=== PATIENT | female | born 1950 | race Caucasian/White ===

== ENCOUNTER → 2017-04-27 | Outpatient (CLI) | payer OTHER | LOC: FIMAGING 13:46 | PROVIDERS: ATTEND Obstetrics & Gynecology | DX: Z12.31 Encounter for screening mammogram for malignant neoplasm of breast (principal); R22.33 Localized swelling, mass and lump, upper limb, bilateral | CPT/HCPCS: G0202 ==

== ENCOUNTER → 2018-04-26 | Outpatient (CLI) | payer OTHER | LOC: FIMAGING 09:55 | PROVIDERS: ATTEND Internal Medicine | DX: Z12.31 Encounter for screening mammogram for malignant neoplasm of breast (principal) ==

== ENCOUNTER 2018-08-21 17:02 | Emergency (ER) | payer OTHER ==
--- NOTE | 2018-08-21 17:22 | EDPHY ---
H & P Stated Complaint: Left chest tightness since this afternoon. Time Seen by Provider: 08/21/18 17:07 HPI/ROS: CHIEF COMPLAINT: Chest vibration HISTORY OF PRESENT ILLNESS: The patient is a 67-year-old female who comes to the emergency department complaining of chest discomfort for the last 5 hr. She states that it feels like her cell phone is vibrating against her chest. She was sitting at her desk when the symptoms began. It is not worsened by exertion or position. No shortness of breath. No lightheadedness. No diaphoresis. No nausea vomiting. She took some Tums which did not help her symptoms. She then took 2 aspirin and came to the ER. She has no history of cardiac disease or pulmonary disease. No recent infections. She states that she did travel to [facility] 2 weeks ago and had lower extremity edema left greater than right at the time that has since improved. No significant pain. She does not smoke. No recent fever or upper respiratory symptoms. Severity: Moderate Modifying factors: None REVIEW OF SYSTEMS: Constitutional: denies: chills, fever, recent illness, recent injury EENTM: denies: blurred vision, double vision, nose congestion Respiratory: denies: cough, shortness of breath Cardiac: See HPI Gastrointestinal/Abdominal: denies: abdominal pain, diarrhea, nausea, vomiting, blood streaked stools Genitourinary: denies: dysuria, frequency, hematuria, pain Musculoskeletal: denies: joint pain, muscle pain Skin: denies: lesions, rash, jaundice, bruising Neurological: denies: headache, numbness, paresthesia, tingling, dizziness, weakness Hematologic/Lymphatic: denies: blood clots, easy bleeding, easy bruising Immunologic/allergic: denies: HIV/AIDS, transplant 10 systems reviewed and negative except as noted EXAM: GENERAL: Well-appearing, well-nourished and in no acute distress. HEAD: Atraumatic, normocephalic. EYES: Pupils equal round and reactive to light, extraocular movements intact, sclera anicteric, conjunctiva are normal. ENT: TMs normal, nares patent, oropharynx clear without exudates. Moist mucous membranes. NECK: Normal range of motion, supple without lymphadenopathy or JVD. LUNGS: Breath sounds clear to auscultation bilaterally and equal. No wheezes rales or rhonchi. HEART: Regular rate and rhythm without murmurs, rubs or gallops. ABDOMEN: Soft, nontender, normoactive bowel sounds. No guarding, no rebound. No masses appreciated. BACK: No CVA tenderness, no spinal tenderness, step-offs or deformities EXTREMITIES: Normal range of motion, no pitting or edema. No clubbing or cyanosis. NEUROLOGICAL: Cranial nerves II through XII grossly intact. Normal speech, normal gait. 5/5 strength, normal movement in all extremities, normal sensation , normal reflexes PSYCH: Normal mood, normal affect. SKIN: Warm, dry, normal turgor, no visible rashes or lesions. Source: Patient Exam Limitations: No limitations - Personal History Current Tetanus Diphtheria and Acellular Pertussis (TDAP): Unsure - Medical/Surgical History Hx Asthma: No Hx Chronic Respiratory Disease: No Hx Diabetes: No Hx Cardiac Disease: No Hx Renal Disease: No Hx Cirrhosis: No Hx Alcoholism: No Hx HIV/AIDS: No Hx Splenectomy or Spleen Trauma: No Other PMH: DEnies - Family History Significant Family History: No pertinent family hx - Social History Smoking Status: Never smoked Alcohol Use: Sober Drug Use: None Constitutional: Initial Vital Signs Temperature (C) 36.6 C 08/21/18 17:03 Heart Rate 79 08/21/18 17:03 Respiratory Rate 16 08/21/18 17:03 Blood Pressure 145/95 H 08/21/18 17:03 O2 Sat (%) 96 08/21/18 17:03 O2 Delivery Mode Room Air Allergies/Adverse Reactions: No Known Allergies Allergy (Verified 09/20/12 07:55) Home Medications: Medication Instructions Recorded Lipitor Dose Unk 09/20/12 Medical Decision Making - Diagnostics EKG Interpretation: An EKG obtained and was read and documented in trace view. Please see trace view for full reading and report. Sinus rhythm, T-wave inversions anteriorly similar to previous Imaging Results: Imaging Impressions Chest X-Ray 08/21/18 17:53 Impression: Stable. Nothing acute identified. Imaging: Discussed imaging studies w/ banquet server on call Radiologist ED Course/Re-evaluation: 715 lab work EKG and chest x-ray are reassuring. Patient is currently asymptomatic. Engaged in shared decision making and agreed to perform repeat troponin. is going to get her food. 8:15 p.m. the patient remains asymptomatic. Her 2nd troponin is negative. I will have her follow up with Cardiology for outpatient stress testing. She understands and agrees with this plan. Her does as well. Differential Diagnosis: Partial list of the Differential diagnosis considered include but were not limited to; acute coronary disease, angina, anxiety, GERD, pleurisy and although unlikely based on the history and physical exam, I also considered PE, pneumonia, pneumothorax. I discussed these differential diagnoses and the plan with the patient as well as the usual and expected course. The patient understands that the diagnosis is provisional and that in medicine we are not always correct and that further workup is often warranted. Usual and customary warnings were given. All of the patient's questions were answered. The patient was instructed to return to the emergency department should the symptoms at all worsen or return, otherwise to followup with the physician as we discussed. - Data Points Laboratory Results: Laboratory Results 08/21/18 17:11 08/21/18 17:11 08/21/18 08/21/18 08/21/18 19:53 17:20 17:11 WBC RBC Hgb Hct MCV MCH MCHC RDW Plt Count MPV Neut % (Auto) Lymph % (Auto) [place] % (Auto) Eos % (Auto) Baso % (Auto) Nucleat RBC Rel Count Absolute Neuts (auto) Absolute Lymphs (auto) Absolute Monos (auto) Absolute Eos (auto) Absolute Basos (auto) Absolute Nucleated RBC Immature Gran % Immature Gran # PT INR APTT D-Dimer Sodium 137 mEq/L mEq/L (135-145) Potassium 4.1 mEq/L mEq/L (3.5-5.2) Chloride 103 mEq/L mEq/L (97-110) Carbon Dioxide 26 mEq/l mEq/l (22-31) Anion Gap 8 mEq/L mEq/L (6-14) BUN 16 mg/dL mg/dL (7-23) Creatinine 0.7 mg/dL mg/dL (0.6-1.0) Estimated GFR > 60 Glucose 108 mg/dL H mg/dL (70-100) Calcium 11.2 mg/dL H mg/dL (8.5-10.4) Phosphorus 3.6 mg/dL mg/dL (2.5-4.5) Total Bilirubin 0.4 mg/dL mg/dL (0.1-1.4) Conjugated Bilirubin 0.3 mg/dL mg/dL (0.0-0.5) Unconjugated Bilirubin 0.1 mg/dL mg/dL (0.0-1.1) AST 18 IU/L IU/L (14-46) ALT 35 IU/L IU/L (9-52) Alkaline Phosphatase 87 IU/L IU/L (38-126) POC Troponin I 0.00 ng/mL ng/mL 0.00 ng/mL ng/mL (0.00-0.08) (0.00-0.08) Total Protein 7.4 g/dL g/dL (6.3-8.2) Albumin 4.5 g/dL g/dL (3.5-5.0) Lipase 228 IU/L IU/L (23-300) 08/21/18 08/21/18 17:11 17:11 WBC 7.68 10^3/uL 10^3/uL (3.80-9.50) RBC 4.72 10^6/uL 10^6/uL (4.18-5.33) Hgb 14.5 g/dL g/dL (12.6-16.3) Hct 42.4 % % (38.0-47.0) MCV 89.8 fL fL (81.5-99.8) MCH 30.7 pg pg (27.9-34.1) MCHC 34.2 g/dL g/dL (32.4-36.7) RDW 12.6 % % (11.5-15.2) Plt Count 296 10^3/uL 10^3/uL (150-400) MPV 10.5 fL fL (8.7-11.7) Neut % (Auto) 58.2 % % (39.3-74.2) Lymph % (Auto) 31.8 % % (15.0-45.0) [place] % (Auto) 6.5 % % (4.5-13.0) Eos % (Auto) 3.0 % % (0.6-7.6) Baso % (Auto) 0.5 % % (0.3-1.7) Nucleat RBC Rel Count 0.0 % % (0.0-0.2) Absolute Neuts (auto) 4.47 10^3/uL 10^3/uL (1.70-6.50) Absolute Lymphs (auto) 2.44 10^3/uL 10^3/uL (1.00-3.00) Absolute Monos (auto) 0.50 10^3/uL 10^3/uL (0.30-0.80) Absolute Eos (auto) 0.23 10^3/uL 10^3/uL (0.03-0.40) Absolute Basos (auto) 0.04 10^3/uL 10^3/uL (0.02-0.10) Absolute Nucleated RBC 0.00 10^3/uL 10^3/uL (0-0.01) Immature Gran % 0.0 % % (0.0-1.1) Immature Gran # 0.00 10^3/uL 10^3/uL (0.00-0.10) PT 12.0 SEC SEC (12.0-15.0) INR 0.92 (0.83-1.16) APTT 26.9 SEC SEC (23.0-38.0) D-Dimer 0.27 ug/mLFEU ug/mLFEU (0.00-0.50) Sodium Potassium Chloride Carbon Dioxide Anion Gap BUN Creatinine Estimated GFR Glucose Calcium Phosphorus Total Bilirubin Conjugated Bilirubin Unconjugated Bilirubin AST ALT Alkaline Phosphatase POC Troponin I Total Protein Albumin Lipase Point of Care Test Results: Chemistry 08/21/18 08/21/18 19:53 17:20 POC Troponin I 0.00 ng/mL ng/mL 0.00 ng/mL ng/mL (0.00-0.08) (0.00-0.08) Departure - Departure Disposition: Home, Routine, Self-Care Clinical Impression: Chest pain Qualifiers: Chest pain type: unspecified Qualified Code(s): R07.9 - Chest pain, unspecified Condition: Fair Instructions: Chest Pain (ED) Referrals: Radha Roy MD [Primary Care Provider] - As per Instructions Christina Mckeon MD [Medical Doctor] - As per Instructions
--- NOTE | 2018-08-21 17:22 | CPEKG ---
Test Reason : OPEN Blood Pressure : / mmHG Vent. Rate : 081 BPM Atrial Rate : 081 BPM P-R Int : 167 ms QRS Dur : 088 ms QT Int : 392 ms P-R-T Axes : 051 045 022 degrees QTc Int : 455 ms Sinus rhythm Low voltage, precordial leads Confirmed by Paddy Gary ([id number]) on 08/21/2018 5:22:33 PM Referred By: PADDY GARY Confirmed By:Paddy Gary
[2018-08-21 17:31] LABS: PLATELET COUNT 296 10^3/uL (150-400)
[2018-08-21 17:39] LABS: INR 0.92 (0.83-1.16)
[2018-08-21 20:48] VITALS: BP 122/85
== END 2018-08-21 20:47 | disposition home or self-care (01) ==
DX: R07.9 Chest pain, unspecified (principal)
CPT/HCPCS: 84484-ER

== ENCOUNTER → 2018-09-04 | Outpatient (CLI) | payer OTHER | LOC: FIMAGING 10:18 | PROVIDERS: ATTEND Orthopaedic Surgery Sports Medicine | DX: Z13.0 Encounter for screening for diseases of the blood and blood-forming organs and certain disorders involving the immune mechanism (principal) ==

== ENCOUNTER → 2018-09-19 | Day surgery (SDC) | payer OTHER ==
[~2018-09-19] MED LIST: ASPIRIN EC 325 MG TAB PO ONE; ATORVASTATIN CALCIUM 20 MG TAB PO SCH; ATROPINE SULFATE 1 MG/10 ML SYR IVP PRN; DIAZEPAM 5 MG TAB PO ONE; FAMOTIDINE 20 MG TAB PO ONE; HEPARIN 10,000 UNIT/10 ML MDV (1,000 UNIT/ML) ONE; HYDROCODONE/APAP 5/325 TAB PO PRN; IOPAMIDOL (ISOVUE-370) 150 ML BTL IV ONE; LIDOCAINE 1% 300 MG/30 ML SDV ONE; MIDAZOLAM 2 MG/2 ML VIAL ONE; NITROGLYCERIN 0.4 MG BTL SL PRN; NS 1,000 ML IV ONE; ONDANSETRON 4 MG/2 ML VIAL IVP PRN; OXYCODONE/APAP 5/325 TAB PO PRN; VERAPAMIL 5 MG/2 ML VIAL ONE; diphenhydrAMINE 25 MG CAP PO ONE; fentaNYL 100 MCG/2 ML INJ ONE
[2018-09-19 10:03] LABS: PLATELET COUNT 244 10^3/uL (150-400)
[2018-09-19 10:17] LABS: INR 0.93 (0.83-1.16); PROTIME(PATIENT) 12.1 SEC (12.0-15.0)
--- NOTE | 2018-09-19 12:48 | PDHPUP ---
History & Physical Update H&P update statement: This history and physical update is based on an assessment of the patient which was completed after admission or registration (within 24 hours), but prior to the surgery/procedure. H&P update: H&P reviewed & patient examined, no change in patient's condition since H&P completed
--- NOTE | 2018-09-19 12:48 | PDPROPOC ---
Sedation Plan of Care Sedation Plan of Care: vital signs stable, mental status noted, patient educated of risks, benefits, alternatives, patient can tolerate sedation ASA Classification: ASA 2 Planned drugs: fentanyl, midazolam Mallampati Score: Class 3 Mallampati Reference Image: Patient passed 3-3-2 rule?: Yes
--- NOTE | 2018-09-19 13:03 | CPEKG ---
Test Reason : OPEN Blood Pressure : / mmHG Vent. Rate : 079 BPM Atrial Rate : 079 BPM P-R Int : 157 ms QRS Dur : 086 ms QT Int : 387 ms P-R-T Axes : 060 052 016 degrees QTc Int : 444 ms Sinus rhythm Minimal ST depression, inferior leads Confirmed by Devang Mckeon ([id number]) on 09/19/2018 1:03:12 PM Referred By: Mohamud Ceron Confirmed By:Devang Mckeon
--- NOTE | 2018-09-19 13:31 | PDDXCAT ---
Diagnostic Cath Note - . Date: 09/19/18 Motel Keeper: Jie Indication: CCC Class III and IV angina on medical treatment, other ( Intermediate Risk Stress Test) - Procedure Access: right wrist Procedure: left heart catheterization, coronary angiography, left ventriculogram - Materials Left Heart Cath size: 5F Left Heart Cath materials: JL3.5, JR4.0, pigtail - Findings-Left Heart Catheterization LM: The left main is 4mm in size and short and bifurcates into an LAD and Circumflex system. LAD: The left anterior descending is 3mm in size and exits the interventricular sulcus distally. The vessel gives rise to a high important diagonal branch. There is NICOLETTE III flow. LCX: The left circumflex is 2.75 proximally. The vessel gives rise to two relatively tortuous obtuse marginal branches. There is NICOLETTE III flow. RCA: The right coronary artery is 3mm in size and dominant. The vessel gives rise to a PDA branch. There is NICOLETTE III flow throughout. EDP: 21mmHg LVEF: 65% Wall motion: On the LV gram there is normal LV systolic function. The EF is 65% . There are no resting segmental wall motion abnormalities. The visualized portion of the thoracic aortic valve reveals three sinuses of valsalva most consistent with a trileaflet valve. There is no gradient on pullback across the aortic valve. There is no evidence of urbano dissection or aneurysm formation of the thoracic aorta. - Findings-Right Heart Catheterization AO: Complications: NONE Estimated blood loss: <50ml Closure method: TR Band Assessment: The patient's nuclear stress test was found to be a false positive, which is most likely caused by the LAD exiting the interventricular sulcus distally. The patient does not have evidence of obstructive disease. Intervention: NONE
== END | disposition home or self-care (01) ==
LOC: FCATH 09:24
PROVIDERS: ATTEND Internal Medicine Cardiovascular Disease
DX: I20.9 Angina pectoris, unspecified (principal); E78.5 Hyperlipidemia, unspecified
CPT/HCPCS: J1644; J2250; J3010; Q9967